=== PATIENT | female | born 1955 | race Two or more races ===

== ENCOUNTER 2018-03-07 10:57 | Outpatient (CLI) | payer OTHER | END 2018-03-07 11:02 | disposition home or self-care (01) | LOC: SONOGRAMA 10:57 | DX: E04.2 Nontoxic multinodular goiter (principal) ==

== ENCOUNTER 2024-05-08 12:20 | Outpatient (CLI) | payer OTHER | END 2024-05-08 12:26 | disposition home or self-care (01) | LOC: SONOGRAMA 12:20 | PROVIDERS: ATTEND Pathology Anatomic Pathology & Clinical Pathology | DX: D34 Benign neoplasm of thyroid gland (principal); E07.89 Other specified disorders of thyroid; E04.2 Nontoxic multinodular goiter ==